=== PATIENT | female | born 1980 | race American Indian/Alaskan Native ===

== ENCOUNTER 2016-07-02 22:26 | Emergency (ER) | payer SELFPAY ==
[2016-07-02 22:47] VITALS: BP 127/76
--- NOTE | 2016-07-02 23:53 | Emergency Department Report ---
Chief Complaint: Chest Pain Stated Complaint: CHEST PAIN/HEART PALPITATIONS Time Seen by Provider: 07/02/16 23:44 - HPI History of Present Illness: 35-year-old female presents today with left upper chest pain radiating to her left arm and shoulder 2 days. Positive for heart flutter/palpitation and shortness of breath that comes and goes. Denies any recent change in activity. Denies nausea, vomiting, abdominal pain. - ROS Review of Systems: Per HPI - Exam Vital Signs: Vital Signs 07/02/16 22:35 Temperature 98.1 F Pulse Rate 68 Respiratory 18 Rate Blood Pressure 127/76 O2 Sat by Pulse 99 Oximetry Physical Exam: General: 35-year-old female in no acute distress. Well-developed, well- nourished. CV: Regular rate and rhythm. Lungs: Clear to auscultation bilaterally. MSE screening note: Focused history and physical exam performed. Due to findings the following was ordered: ED Disposition for MSE Condition: Stable
[2016-07-03 00:18] LABS: Hematocrit 39.6 % (30.3-42.9); Hemoglobin 13.5 gm/dl (10.1-14.3); Mean Corpuscular HGB Conc 34 % (30-34); Mean Corpuscular Hemoglobin 31 pg (28-32); Mean Corpuscular Volume 92 fl (79-97); Platelet Count 233 K/mm3 (140-440); White Blood Count 12.3 K/mm3 (4.5-11.0)
[2016-07-03 00:41] LABS: Creatine Kinase MB 1.3 ng/mL (0.0-4.0)
[2016-07-03 00:43] LABS: Alanine Aminotransferase 14 units/L (7-56); Albumin 3.9 g/dL (3.9-5); Albumin/Globulin Ratio 1.2 %; Alkaline Phosphatase 61 units/L (35-129); Bilirubin,Total 0.2 mg/dL (0.1-1.2); Blood Urea Nitrogen 14 mg/dL (7-17); Calcium 8.9 mg/dL (8.4-10.2); Carbon Dioxide 26 mmol/L (22-30); Chloride 105.1 mmol/L (98-107); Creatine Kinase 113 units/L (30-135); Glucose 96 mg/dL (65-100); Lipase 34 units/L (13-60); Potassium 4.3 mmol/L (3.6-5.0); Sodium 141 mmol/L (137-145); Total Protein 7.1 g/dL (6.3-8.2)
[2016-07-03 00:46] LABS: Anion Gap 14 mmol/L
[2016-07-03 00:47] LABS: Bilirubin,Direct < 0.2 mg/dL (0-0.2)
[2016-07-03 02:24] LABS: Anisocytosis 1+; Basophils % (Manual) 0 % (0.0-1.8); Blastocytes % (Manual) 0 %; Diff Status Complete; Hypochromasia Few
--- NOTE | 2016-07-03 09:08 | XRay Report ---
Chest 2 views: History: Chest pain. Findings: Normal cardiomediastinal silhouette. Trachea is midline. No consolidation, pneumothorax or pleural effusion. Impression: No acute cardiopulmonary findings.
--- NOTE | 2016-07-04 18:07 | ED Elopement Review ---
ED Pt Elopement review - Results review Lab results: Laboratory Tests 07/03/16 07/03/16 00:06 00:06 WBC 12.3 H RBC 4.30 Hgb 13.5 Hct 39.6 MCV 92 MCH 31 MCHC 34 RDW 13.0 L Plt Count 233 Lymph # Computer Numerical Control Grinder Add Manual Diff Complete Total Counted 100 Seg Neuts % (Manual) 48.0 Band Neutrophils % 0 Lymphocytes % (Manual) 42.0 H Reactive Lymphs % (Man) 0 Monocytes % (Manual) 9.0 H Eosinophils % (Manual) 1.0 Basophils % (Manual) 0 Metamyelocytes % 0 Myelocytes % 0 Promyelocytes % 0 Blast Cells % 0 Nucleated RBC % Not Reportable Seg Neutrophils # Man 5.9 Band Neutrophils # 0.0 Lymphocytes # (Manual) 5.2 Abs React Lymphs (Man) 0.0 Monocytes # (Manual) 1.1 H Eosinophils # (Manual) 0.1 Basophils # (Manual) 0.0 Metamyelocytes # 0.0 Myelocytes # 0.0 Promyelocytes # 0.0 Blast Cells # 0.0 WBC Morphology Not Reportable Hypersegmented Neuts Not Reportable Hyposegmented Neuts Not Reportable Hypogranular Neuts Not Reportable Smudge Cells Not Reportable Toxic Granulation Not Reportable Toxic Vacuolation Not Reportable Dohle Bodies Not Reportable Pelger-Huet Anomaly Not Reportable Luis Rods Not Reportable Platelet Estimate Appears normal Clumped Platelets Not Reportable Plt Clumps, EDTA Not Reportable Large Platelets Not Reportable Giant Platelets Not Reportable Platelet Satelliting Not Reportable Plt Morphology Comment Not Reportable RBC Morphology Not Reportable Dimorphic RBCs Not Reportable Polychromasia Not Reportable Hypochromasia Few Poikilocytosis Not Reportable Anisocytosis 1+ Microcytosis Not Reportable Macrocytosis Not Reportable Spherocytes Not Reportable Pappenheimer Bodies Not Reportable Sickle Cells Not Reportable Target Cells Not Reportable Tear Drop Cells Not Reportable Ovalocytes Not Reportable Helmet Cells Not Reportable Marshall-[place] Bodies Not Reportable Arthur Rings Not Reportable Luiz Cells Not Reportable Bite Cells Not Reportable Crenated Cell Not Reportable Elliptocytes Not Reportable Acanthocytes (Spur) Not Reportable Rouleaux Not Reportable Hemoglobin C Crystals Not Reportable Schistocytes Not Reportable Malaria parasites Not Reportable Delvis Bodies Not Reportable Hem Pathologist Commnt No Sodium 141 Potassium 4.3 Chloride 105.1 Carbon Dioxide 26 Anion Gap 14 BUN 14 Creatinine 0.7 Estimated GFR > 60 BUN/Creatinine Ratio 20.00 Glucose 96 Calcium 8.9 Total Bilirubin 0.2 Direct Bilirubin < 0.2 Indirect Bilirubin 0.0 AST 16 ALT 14 Alkaline Phosphatase 61 Total Creatine Kinase 113 CK-MB (CK-2) 1.3 CK-MB (CK-2) Rel Index 1.1 Troponin T < 0.010 Total Protein 7.1 Albumin 3.9 Albumin/Globulin Ratio 1.2 Lipase 34 - Call Back decision Pt Call Back Decision: Call pt to return to ED [facility] (chest pain may require inpatient evaluation)
== END 2016-07-03 02:15 | disposition left against medical advice (07) ==
LOC: ED 22:26
DX: R07.89 Other chest pain (principal); M79.602 Pain in left arm; R00.2 Palpitations; R06.02 Shortness of breath; Z53.21 Procedure and treatment not carried out due to patient leaving prior to being seen by health care provider
CPT/HCPCS: 36415; 71020; 80048; 80074; 82550; 82553; 83690; 84484; 85007; 85025; 93005; 93010

== ENCOUNTER 2017-02-01 19:51 | Emergency (ER) | payer SELFPAY | END 2017-02-01 20:30 | disposition left against medical advice (07) | LOC: ED 19:51 | DX: K21.9 Gastro-esophageal reflux disease without esophagitis (principal); Z53.21 Procedure and treatment not carried out due to patient leaving prior to being seen by health care provider | CPT/HCPCS: 93005; 93010 ==

== ENCOUNTER 2021-08-31 23:22 | Emergency (ER) | payer MEDICAID, OTHER ==
[2021-08-31 23:35] VITALS: BP 116/71
[2021-08-31] MEDS ORDERED: ASPIRIN 325 MG TAB PO ONE (23:39)
[2021-09-01 00:29] LABS: Alanine Aminotransferase 14 units/L (7-56); Albumin 4.4 g/dL (3.9-5); Blood Urea Nitrogen 17 mg/dL (7-17); Calcium 9.8 mg/dL (8.4-10.2); Hematocrit 43.9 % (30.3-42.9); Hemoglobin 14.5 gm/dl (10.1-14.3); Hemolysis Index 31; Mean Corpuscular HGB Conc 33 % (30-34); Mean Corpuscular Volume 95 fl (79-97); Platelet Count 270 K/mm3 (140-440); Red Blood Count 4.64 M/mm3 (3.65-5.03); Red Cell Distribution Width 13.1 % (13.2-15.2)
[2021-09-01 01:08] LABS: BUN/Creatinine Ratio 28
[2021-09-01 04:18] LABS: Basophils % (Manual) 0 % (0.0-1.8); Total Cells Counted 100
[2021-09-01 04:19] LABS: Anisocytosis 1+; Macrocytosis Few; Platelet Estimate Consistent w Auto
--- NOTE | 2021-09-01 11:32 | XRay Report ---
CHEST 2 VIEWS INDICATION / CLINICAL INFORMATION: CHEST PAIN. COMPARISON: Chest x-ray 07/02/2016 FINDINGS: SUPPORT DEVICES: None. HEART / MEDIASTINUM: No significant abnormality. LUNGS / PLEURA: No significant pulmonary or pleural abnormality. No pneumothorax. ADDITIONAL FINDINGS: No significant additional findings. IMPRESSION: 1. No active cardiopulmonary disease. Signer Name: Hawk Angel II, MD Signed: 09/01/2021 12:46 AM Workstation Name: [id number]
--- NOTE | 2021-09-01 11:32 | Electrocardiograph Report ---
[facility] Test Date: 2021-08-31 Test Time: 23:30:23 Pat Name: EDDIE JUAREZ Department: Room: Gender: F Trial [employer] Justice: SHAY : 1980 Requested By: ED DOC Order Number: [id number] Reading MD: Desmond Zimmerman Measurements Intervals [place] Rate: 72 P: 46 MT: 178 QRS: 64 QRSD: 99 T: 50 QT: 354 QTc: 389 Interpretive Statements Sinus rhythm No previous ECG available for comparison Electronically Signed On 09-01-2021 10:44:51 EDT by Desmond Zimmerman
== END 2021-09-01 00:30 | disposition left against medical advice (07) ==
LOC: ED 23:22
DX: R07.9 Chest pain, unspecified (principal); M54.9 Dorsalgia, unspecified; Z53.21 Procedure and treatment not carried out due to patient leaving prior to being seen by health care provider
CPT/HCPCS: 36415; 71046; 80053; 84484; 85007; 85025; 93005